=== PATIENT | male | born 1995 | race Caucasian/White ===

== ENCOUNTER 2020-07-05 22:41 | Emergency (ER) | payer BC ==
--- NOTE | 2020-07-05 22:45 | PDOC ---
History of Present Illness - General Chief Complaint: Pain, Acute Stated Complaint: FELL ON MONDAY, HIT HEAD Time Seen by Provider: 07/05/20 22:44 History Source: Patient Exam Limitations: No Limitations - History of Present Illness Initial Comments: 07/05/20 22:44 HPI 25 YOM with no sig medical history presenting with headache, s/p fall about 4 days ago. He states about 4 days ago, he was walking with his friend in the dark and he fell into a 8-ft hole, landing on his back and left side. no LOC or sz or AMS. able to ambulate after the event. However the day after he started experiencing a headache that has been constant x 3 days. He describes an occipital headache, radiating to the sides, 6-7/10, worse with thinking and looking at computer screens. 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 Associated with dizziness, nausea and blurry vision, lower back and neck pain. +abrasions to his left knee, but able to walk. He denies taking any medications for the pain denies any focal weakness or paresthesias, gait instability, cp or sob, vomiting. Allergies: None Past Medical History/PSH: none Social history: Lives with family. No tobacco, occ ETOH and drug use. Meds: none Review of systems Constitutional: no fevers or chills. No weakness HEENT: no headache or dizziness. No congestion. No visual/hearing disturbances. CVS: no cp or syncope. Resp: no sob. No cough. Gastrointestinal: no abdominal pain, nausea, vomiting, diarrhea. Genitourinary: no urinary sx, hematuria. MUSCULOSKELETAL: No joint pain and swelling. No neck or back pain. SKIN: no redness or skin changes, no discharge, no rash. No wounds. Hematologic: no easy bruising/bleeding. NEUROLOGIC: No headache, dizziness, LOC or altered mental status. No weakness, numbness or tingling. Psych: no anxiety or depression Allergic/Immunologic: no allergies All other systems reviewed and negative, or as documented in HPI. Physical exam General: Well appearing, awake and alert, NAD. GCS 15 HEENT: NCAT, PERRL, EOMI, clear conjunctiva, anicteric, moist mucus membranes, clear oropharynx, no oral lesions.. Neck: neck supple, FROM; no midline cervical tenderness. Resp: CTAB, normal and even respirations, no respiratory distress CVS: RRR, no murmurs, 2+ peripheral pulses throughout, no peripheral edema Abdomen: soft, NTND, no rebound or guarding. Back: normal inspection and ROM. mild lower lumbar paraspinal tenderness. MSK: no edema, RIZZO x4, ROM intact. No clubbing or cyanosis. normal bulk and tone. Extremities: +left knee bruising and abrasion but FROM Neuro: alert, oriented appropriately; no focal neurologic deficits, 5/5 prox and distal strength in all extremities, SILT in all extremities. gait stable, speech clear. Psych: Calm and cooperative Skin: warm and well perfused, cap refill <2 sec, normal color, no rash or skin discoloration. 07/05/20 22:54 Past History - Medical History Allergies/Adverse Reactions: Allergies Allergy/AdvReac Type Severity Reaction Status Date / Time No Known Allergies Allergy Verified 06/29/14 19:09 Home Medications: Ambulatory Orders Clonazepam [Klonopin] 1 mg PO DAILY 07/05/20 Duloxetine HCl [Cymbalta] 40 mg PO DAILY 07/05/20 Psychiatric Problems: Yes (ANXIETY, ADHD) - Immunization History Immunization Up to Date: Yes - Psycho-Social/Smoking History Smoking History: Never smoked Medical Decision Making - Medical Decision Making 07/05/20 22:59 Vital Signs Temp Pulse Resp BP Pulse Ox 98.5 F 60 16 120/80 100 07/05/20 22:45 07/05/20 22:45 07/05/20 22:45 07/05/20 22:45 07/05/20 22:45 vitals reviewed, wnl, reassuring ddx: ICH, SDH/ EDH, concussion syndrome nexus clear, no features to suggest clinically significant neck injury no xray imaging indicated given tylenol here CT head neg for acute fx or bleed or energy project manager pathology likely concussion, will encourage analgesia otc as needed, mental/physical and emotional rest work note to be given. stable for DC return precautions. neuro followup as needed given for concussion management 07/06/20 00:00 Discharge - Discharge Information Problems reviewed: Yes Clinical Impression/Diagnosis: Concussion Qualifiers: Encounter type: initial encounter Loss of consciousness presence/duration: without LOC Qualified Code(s): S06.0X0A - Concussion without loss of consciousness, initial encounter Condition: Stable Disposition: HOME - Admission No - Follow up/Referral Referrals: Jair Brunner MD [Staff Physician] - Erickson Hassan MD [Staff Physician] - Graham Bingham MD [Staff Physician] - - Patient Discharge Instructions Patient Printed Discharge Instructions: DI for Concussion, DI for Postconcussion Syndrome Additional Instructions: CONCUSSION Based on the events which brought you to the ER today, it is possible that you may have a concussion. A concussion occurs when there is a blow to the head or body, with enough force to shake the brain and disrupt how the brain functions. You may experience symptoms such as headaches, sensitivity to light/noise, dizziness, cognitive slowing, difficulty concentrating / remembering, trouble sleeping and drowsiness. These symptoms may last anywhere from hours/days to potentially weeks/months. While these symptoms are very frustrating and perhaps debilitating, it is important that you remember that they will improve over time. Everyone has a different rate of recovery; it is difficult to predict when your symptoms will resolve. In order to allow for your brain to heal after the injury, we recommend that you see your primary physician or a physician knowledgeable in concussion management. We will give you a list of neurologists, they are the specialists for head injuries. We also advise you to let your body and brain rest: avoid physical activities (sports, gym, and exercise) and reduce cognitive demands (reading, texting, TV watching, computer use, video games, etc). School attendance, after-school activities and work may need to be modified to avoid increasing symptoms. We recommend against driving until until all symptoms have resolved. You should take 650mg of Acetaminophen (Tylenol) every 4 hours as needed for pain control; however, taking anti-inflammatory medication (Motrin/Advil/Ibuprofen) is not advised. Come back to the ER right away if you are having repeated episodes of vomiting, severe/worsening headache/dizziness or any other symptom that alarms you. We recommended that someone stay with you for the next 24 hours to monitor for these worrisome symptoms. - Post Discharge Activity Work/Back to School Note: Back to Work
[2020-07-05 22:49] VITALS: BP 120/80; PULSE 60; TEMP 98.5; BMI 23.7
[2020-07-05] MEDS ORDERED: ACETAMINOPHEN 325 MG TABLET (FP) PO ONE (22:53)
[2020-07-05] MEDS ORDERED: ACETAMINOPHEN 500 MG TABLET (FP) ONE (22:55)
== END 2020-07-06 00:04 | disposition home or self-care (01) ==
LOC: FER 22:41
DX: S06.0X0A Concussion without loss of consciousness, initial encounter (principal)
CPT/HCPCS: 70450-TC; 99284-25